=== PATIENT | male | born 1970 | race Caucasian/White ===

== ENCOUNTER 2023-01-07 07:57 | Day surgery (SDC) | payer BC, OTHER ==
[2022-12-31 09:02] VITALS: BMI 24.3
[2023-01-07] MEDS ORDERED: BUPIVACAINE HCL/EPINEPHRINE/PF 30 ML VIAL IJ ONE (08:07)
[2023-01-07] MEDS ORDERED: EPINEPHrine 1:1,000 1,000 MCG/ML ML ONE (08:08)
[2023-01-07] MEDS ORDERED: ONDANSETRON 4 MG/2 ML VIAL ONE (08:46)
[2023-01-07] MEDS ORDERED: DEXAMETHASONE SOD PHOSPHATE 4 MG/1 ML VIAL ONE (08:46)
[2023-01-07] MEDS ORDERED: PROPOFOL 40 ML ONE (08:46)
[2023-01-07] MEDS ORDERED: MIDAZOLAM HCL 2 MG/2 ML SINGLE DOSE VIAL ONE (08:47)
[2023-01-07] MEDS ORDERED: ROPIVACAINE HCL 0.5% 30ML VIAL ONE (10:21)
[2023-01-07] MEDS ORDERED: ceFAZolin SODIUM 1 GM VIAL ONE (10:58)
[2023-01-07] MEDS ORDERED: oxyCODONE HCL 5 MG TABLET PO PRN ×2 (11:24)
[2023-01-07] MEDS ORDERED: ONDANSETRON 4 MG/2 ML VIAL IVPUSH PRN (11:24)
[2023-01-07] MEDS ORDERED: LACTATED RINGERS SOLUTION 1,000 ML IV SCH (11:30)
[2023-01-07] MEDS ORDERED: PROPOFOL 20 ML ONE (11:54)
[2023-01-07 14:27] VITALS: RESP 18
[2023-01-07 14:33] VITALS: BP 121/76; PULSE 58; TEMP 97.4
== END 2023-01-07 14:33 | disposition home or self-care (01) ==
LOC: FASU 07:57
PROVIDERS: ATTEND Orthopaedic Surgery
PROC: 0RNJ4ZZ Release Right Shoulder Joint, Percutaneous Endoscopic Approach (ICD-10-PCS; principal; 2023-01-07 11:12)
DX: M75.101 Unspecified rotator cuff tear or rupture of right shoulder, not specified as traumatic (principal)
CPT/HCPCS: 94760; C1713